=== PATIENT | female | born 1990 | race Caucasian/White ===

== ENCOUNTER 2024-05-03 09:19 | Day surgery (SDC) | payer OTHER, SELFPAY ==
--- NOTE | ~2024-05-03 | FL_ITS ---
Fluoroscopic lumbar puncture Indication: Intracranial hypertension Risks and benefits and possible complications were discussed with the patient and the consent form was signed. Patient was placed prone on the fluoroscopy table. The back was prepped and draped in routine sterile fashion. Betadine was used as a skin antiseptic. Utilizing fluoroscopic guidance, the L3-4 interlaminar space was accessed with a 22 gague Devan spinal needle and clear CSF fluid obtained. Opening pressure was 23 cm H2O in the left lateral decubitus position. 10 cc of fluid was sent for analysis. The needle was removed without immediate complications. Total fluoroscopy time: 0.4 min FL/FL guided lumbar puncture LP Impression: Successful fluoroscopic lumbar puncture. Opening pressure was 23 cm H2O. This procedure was performed by Nick Mcfarlane PA-C and supervised by Dr. Huang.
[2024-05-03 09:41] LABS: UPreg QC Valid YES; Urine Pregnancy NEGATIVE (NEGATIVE)
[2024-05-03 09:51] VITALS: BMI 34.4
[2024-05-03 11:40] VITALS: BP 107/71; PULSE 73; RESP 17; TEMP 36.7; O2SAT 97
[2024-05-03 11:55] VITALS: BP 105/63; PULSE 75; RESP 17; O2SAT 96
[2024-05-03 12:10] VITALS: BP 103/70; PULSE 67; RESP 17; O2SAT 99
[2024-05-03 12:23] VITALS: BP 107/63; PULSE 67; RESP 17; TEMP 36.2; O2SAT 97
[2024-05-03 12:26] LABS: CSF Appearance Clear, Colorless; CSF Tube # 1
[2024-05-03 12:34] LABS: Glucose CSF 53 mg/dL
[2024-05-03 12:59] LABS: Appearance CSF CLEAR; CSF Tube # 4; Color CSF COLORLESS; Red Blood Cell CSF 0 MM*3; White Blood Cell CSF 0 MM*3
== END 2024-05-03 12:27 | disposition home or self-care (01) ==
PROVIDERS: Physician Assistant Surgical; Visit Provider Psychiatry & Neurology Neurology
PROC: 009U3ZZ Drainage of Spinal Canal, Percutaneous Approach (ICD-10-PCS; CPT 62270; principal; 2024-05-03 11:00)
DX: G93.2 Benign intracranial hypertension (principal); G43.009 Migraine without aura, not intractable, without status migrainosus; Z79.899 Other long term (current) drug therapy
CPT/HCPCS: 62328; 81025; 82945; 84157; 87015; 87070; 87205; 89051

== ENCOUNTER → 2024-05-03 11:05 | Outpatient (BNV) | payer OTHER, SELFPAY | PROVIDERS: Visit Provider Physician Assistant Surgical | DX: G93.2 Benign intracranial hypertension (principal) | CPT/HCPCS: 62328 ==